=== PATIENT | female | born 1975 | race Caucasian/White ===

== ENCOUNTER 2023-07-30 17:43 | Emergency (ER) | payer BC, SELFPAY ==
[2023-07-30 17:43] VITALS: BP 102/81; PULSE 90; RESP 18; TEMP 37; O2SAT 100; BMI 23.3
--- NOTE | 2023-07-30 20:00 | EDS_ITS ---
HPI History of Present Illness Chief Complaint: Laceration Informant: patient Onset/Context/Timing Onset: Today Mechanism/Context: Puncture Wound Quality of Pain: Sharp Location: Right ring finger and palm of left hand Worsened by: Nothing Relieved by: Nothing Associated Symptoms Associated Symptoms: Negative for Parasthesias, Weakness, Loss of function, Inability to ambulate or Loss of consciousness Narrative Narrative: Patient presents with injury to both of her hands that occurred today. Patient states she was holding a glass bottle in her hand when she fell. Patient put her hands out to catch her and the bottle broke. Patient is unsure if there is any glass in her wounds. Patient describes her pain as sharp. Patient states her pain is over the distal phalanx of the right ring finger and palmar aspect of the left hand near the wrist. Patient states her last tetanus was within 5 years. Patient denies any paresthesias or weakness. Patient denies any other injuries. Tetanus Immunization: <5 years PFSH PFSH Allergy/AdvReac Type Severity Reaction Status Date / Time No Known Allergies Allergy Verified 07/30/23 17:46 Surgical History no surgical history no surgical history ROS ROS ED Constitutional Constitutional ED: Denies chills or fever(s) Eyes Eyes: Denies blurry vision or change in vision ENT ENT ED: Denies rhinorrhea or sore throat Cardiovascular Cardiovascular: Denies chest pain or palpitations Respiratory/Chest Respiratory/Chest: Denies cough or dyspnea Gastrointestinal Gastrointestinal: Denies nausea or vomiting Genitourinary Genitourinary ED: Denies dysuria or hematuria Musculoskeletal Musculoskeletal: Denies back pain or neck pain Integumentary Denies abscess or rash Neurologic Neurologic: Denies headache(s) or weakness Allergic/Immunologic Allergic/Immunologic ED: Denies mouth swelling or urticaria EXAM Physical Exam Const Vital Signs: 07/30/23 17:43 Temperature 98.6 F Temperature Source Temporal Pulse Rate 90 Respiratory Rate 18 Blood Pressure 102/81 H Blood Pressure Mean 88 Pulse Ox 100 Oxygen Delivery Method Room Air Positive well nourished and well developed General Appearance ED: well developed and NAD Neck full ROM Extremity Extremity Narrative: There is tenderness, edema, and ecchymosis over the distal phalanx of the right ring finger. There is also a small puncture wound noted on the ulnar aspect of the distal phalanx of the right ring finger. There is no obvious deformity noted. There is good range of motion of the MP, PIP, and DIP joints of the right ring finger. There is also a superficial linear abrasion over the palmar aspect of the left hand on the ulnar aspect near the wrist. There is no active bleeding noted. There are no foreign bodies visualized. There is minimal gapping of the wound margins. Sensation was intact to light touch in all digits bilaterally. Capillary refill was less than 2 seconds in all digits. Strength is 5/5 in the radial, median, and ulnar areas bilaterally. Sensation was intact to light touch in the radial, median, and ulnar areas bilaterally. Radial pulses are equal bilaterally. Neuro oriented x3, CN's II-XII intact bilaterally, moves all extremities, no focal motor deficits and no sensory deficits noted Jerrell Coma Scale: document GCS findings Spontaneous Obeys Commands Oriented 15 Sensorium / Orientation: alert Motor Exam: strength 5/5 throughout Psych mental status grossly normal MDM MDM MDM Narrative Medical decision making narrative: X-rays of the right ring finger were obtained to assess for foreign body and fracture. X-rays of the left hand were obtained to assess for foreign body. Radiography Diagnostic Testing: X-rays of the left hand were obtained. There are 3 views. On my independent interpretation, there is no acute fracture or foreign body. Radiologist also interpreted the x-rays and agrees. X-rays of the right ring finger were obtained. There are 3 views. On my independent interpretation, there is no acute fracture or dislocation noted. There is no radiopaque foreign body. There is some mild soft tissue swelling in the distal phalanx. Radiologist also interpreted the x-rays and agrees. Treatment and Re-Evaluation Narrative: Patient was advised of her findings. The wounds were cleaned and irrigated. Wounds were dressed with bacitracin dressings. Patient was instructed to keep t he wound clean and dry. Patient was instructed to follow-up with her primary care physician in 5 to 7 days. Patient understood and was agreeable with the plan. All questions were answered. Discharge Plan Triage Chief Complaint: Laceration ED Provider: Darshan Sellers Dx/Rx/DC Orders Clinical Impression: Contusion of right ring finger without damage to nail, initial encounter, Abrasion of left hand, initial encounter Instructions: ED Abrasion, ED Contusion, Upper Extremity Primary Care Provider: [facility] Doctor,Out of Referrals: [facility] ,Out of [Primary Care Provider] - 1-2 Weeks Disposition Disposition: Home, Self Care
--- NOTE | 2023-07-30 20:30 | RAD_ITS ---
EXAM: XR LEFT HAND COMPLETE, 3 OR MORE VIEWS CLINICAL INDICATION: Injury/Pain TECHNIQUE: Frontal, lateral and oblique views of the left hand. COMPARISON: No relevant prior studies available. FINDINGS: BONES/JOINTS: Unremarkable. No acute fracture. No subluxation. Normal alignment. Preservation of the joint space. No sclerotic or destructive changes observed. SOFT TISSUES: Unremarkable. No soft tissue swelling or gas. No radiopaque foreign body. RAD/Hand Min 3 Views IMPRESSION: Negative left hand x-rays. Electronically Signed: Pankaj Richardson MD at 21:03 EDT ,
--- NOTE | 2023-07-30 20:30 | RAD_ITS ---
EXAM: XR RIGHT FINGERS, 2 OR MORE VIEWS CLINICAL INDICATION: Injury/Pain TECHNIQUE: Frontal, lateral and oblique views of the fingers of the right hand. COMPARISON: No relevant prior studies available. FINDINGS: BONES/JOINTS: Unremarkable. No acute fracture. No subluxation. Normal alignment. Preservation of the joint space. No sclerotic or destructive changes observed. SOFT TISSUES: Unremarkable. No soft tissue swelling or gas. No radiopaque foreign body. RAD/Finger(s) Min 2 Views IMPRESSION: Negative x-rays of the visualized right fingers. Electronically Signed: Pankaj Richardson MD at 21:07 EDT ,
[2023-07-30 22:22] VITALS: BP 122/80; PULSE 64; RESP 18; TEMP 37; O2SAT 100
== END 2023-07-30 22:24 | disposition home or self-care (01) ==
PROVIDERS: Emergency Provider Emergency Medicine; Visit Provider Emergency Medicine
DX: S60.512A Abrasion of left hand, initial encounter (principal); S60.041A Contusion of right ring finger without damage to nail, initial encounter; W19.XXXA Unspecified fall, initial encounter
CPT/HCPCS: 73130; 73140; 99283